=== PATIENT | female | born 1975 | race African-American/Black ===

== ENCOUNTER 2022-11-19 13:59 | Inpatient (IN) | payer OTHER ==
[2022-11-19 14:25] VITALS: BMI 29.2
[2022-11-19] MEDS ORDERED: POLYETHYLENE GLYCOL (HEALTHYLAX) 3350 17 GM PACKET PO PRN (15:06)
[2022-11-19] MEDS ORDERED: IBUPROFEN 400 MG TABLET (FP) PO PRN (15:06)
[2022-11-19] MEDS ORDERED: ONDANSETRON *ODT* 4 MG TABLET SL PRN (15:06)
[2022-11-19] MEDS ORDERED: P-EPHED 60MG/TRIPROLIDI 2.5MG TABLET PO PRN (15:06)
[2022-11-19] MEDS ORDERED: MAGNESIUM HYDROX 2400MG/30ML ORAL SUSPENSION 30 ML CUP PO PRN (15:06)
[2022-11-19] MEDS ORDERED: ACETAMINOPHEN 325 MG TABLET (FP) PO PRN (15:06)
[2022-11-19] MEDS ORDERED: BENZONATATE 200 MG CAPSULE PO PRN (15:06)
[2022-11-19] MEDS ORDERED: LOPERAMIDE HCL 2 MG CAPSULE PO PRN (15:06)
[2022-11-19] MEDS ORDERED: MAG HYDROX/AL HYDROX/SIMETH 30 ML UNIT-DOSE CUP PO PRN (15:06)
[2022-11-19] MEDS ORDERED: guaiFENesin 600 MG TABLET.ER (FP) PO PRN (15:06)
[2022-11-19] MEDS ORDERED: hydrOXYzine PAMOATE 25 MG CAPSULE (FP) PO PRN (15:06)
[2022-11-19] MEDS ORDERED: NICOTINE 10 MG CARTRIDGE (INHALER) IH PRN (15:06)
[2022-11-19] MEDS ORDERED: BISMUTH SUBSALICYLATE 524 MG/30 ML PO PRN (15:06)
[2022-11-19] MEDS ORDERED: DICYCLOMINE HCL 10 MG CAPSULE PO PRN (15:06)
[2022-11-19] MEDS ORDERED: IBUPROFEN 600 MG TABLET (FP) PO PRN (15:06)
[2022-11-19] MEDS ORDERED: BENZOCAINE/MENTHOL (CHLORASEPTIC ) LOZENGE MM PRN (15:06)
[2022-11-19] MEDS ORDERED: chlordiazePOXIDE HCL 25 MG CAPSULE PO PRN (15:09)
[2022-11-19] MEDS: chlordiazePOXIDE HCL 25 MG CAPSULE PO SCH ×2 (16:38→22:31)
[2022-11-19] MEDS: HYDROCHLOROTHIAZIDE 12.5 MG CAPSULE (FP) PO SCH (18:08)
[2022-11-19] MEDS: THIAMINE HCL 100 MG TABLET (FP) PO SCH (22:31)
[2022-11-19] MEDS: MELATONIN 5 MG TABLETS PO SCH (22:31)
[2022-11-19] MEDS: METHOCARBAMOL 500 MG TABLET PO PRN (22:31)
[2022-11-20] MEDS: chlordiazePOXIDE HCL 25 MG CAPSULE PO SCH ×4 (05:31→22:17)
[2022-11-20 10:50] LABS: POTASSIUM 3.5 mmol/L (3.5-5.1)
[2022-11-20 10:53] LABS: CALCIUM 8.4 mg/dL (8.5-10.1)
[2022-11-20 10:54] LABS: ALBUMIN 3.2 g/dl (3.4-5.0); BLOOD UREA NITROGEN 11.2 mg/dL (7-18)
[2022-11-20] MEDS: HYDROCHLOROTHIAZIDE 12.5 MG CAPSULE (FP) PO SCH (10:55)
[2022-11-20] MEDS: PRENATAL VITAMINS W/ FOLIC ACID TABLET (FP) PO SCH (10:55)
[2022-11-20 10:57] LABS: CREATININE 0.8 mg/dL (0.55-1.3)
[2022-11-20 10:58] LABS: TOT PROT 6.7 g/dl (6.4-8.2)
[2022-11-20 11:11] LABS: HEMATOCRIT 32.2 % (32.4-45.2); MCH 28.1 pg (25.7-33.7); MCHC 34.2 g/dl (32.0-36.0); MEAN CELL VOLUME 82.1 fl (80-96); MEAN PLT VOLUME 8.1 fl (7.5-11.1); PLATELET COUNT 162 10^3/uL (134-434); RBC 3.92 M/mm3 (3.60-5.2); RDW 16.5 % (11.6-15.6); WHITE BLOOD COUNT 3.4 K/mm3 (4.0-10.0)
[2022-11-20] MEDS: METHOCARBAMOL 500 MG TABLET PO PRN (20:36)
[2022-11-20] MEDS: THIAMINE HCL 100 MG TABLET (FP) PO SCH (22:17)
[2022-11-20] MEDS: MELATONIN 5 MG TABLETS PO SCH (22:17)
[2022-11-21] MEDS: chlordiazePOXIDE HCL 25 MG CAPSULE PO SCH ×4 (05:14→22:20)
[2022-11-21] MEDS: PRENATAL VITAMINS W/ FOLIC ACID TABLET (FP) PO SCH (10:12)
[2022-11-21] MEDS: HYDROCHLOROTHIAZIDE 12.5 MG CAPSULE (FP) PO SCH (10:12)
[2022-11-21] MEDS: NICOTINE POLACRILEX 2 MG GUM BUC PRN (12:59)
[2022-11-21] MEDS: LISINOPRIL 5 MG TABLET PO SCH (14:23)
[2022-11-21] MEDS: cloNIDine HCL 0.1 MG TABLET PO PRN (17:18)
[2022-11-21] MEDS: MELATONIN 5 MG TABLETS PO SCH (22:20)
[2022-11-21] MEDS: THIAMINE HCL 100 MG TABLET (FP) PO SCH (22:20)
[2022-11-21] MEDS: METHOCARBAMOL 500 MG TABLET PO PRN (22:21)
[2022-11-22] MEDS ORDERED: chlordiazePOXIDE HCL 10 MG CAPSULE PO PRN
[2022-11-22] MEDS: chlordiazePOXIDE HCL 10 MG CAPSULE PO SCH ×4 (05:48→22:12)
[2022-11-22] MEDS: PRENATAL VITAMINS W/ FOLIC ACID TABLET (FP) PO SCH (10:21)
[2022-11-22] MEDS: HYDROCHLOROTHIAZIDE 12.5 MG CAPSULE (FP) PO SCH (10:21)
[2022-11-22] MEDS: LISINOPRIL 5 MG TABLET PO SCH (10:21)
[2022-11-22] MEDS: cloNIDine HCL 0.1 MG TABLET PO PRN ×2 (17:47→22:12)
[2022-11-22] MEDS: NICOTINE POLACRILEX 2 MG GUM BUC PRN (18:17)
[2022-11-22] MEDS: MELATONIN 5 MG TABLETS PO SCH (22:12)
[2022-11-22] MEDS: THIAMINE HCL 100 MG TABLET (FP) PO SCH (22:12)
[2022-11-23] MEDS ORDERED: INSULIN SLIDING SCALE (NOVOLOG) 1 VIAL SQ ONE (04:22)
[2022-11-23] MEDS: chlordiazePOXIDE HCL 10 MG CAPSULE PO SCH ×2 (05:41→17:31)
[2022-11-23] MEDS: HYDROCHLOROTHIAZIDE 12.5 MG CAPSULE (FP) PO SCH (10:19)
[2022-11-23] MEDS: PRENATAL VITAMINS W/ FOLIC ACID TABLET (FP) PO SCH (10:19)
[2022-11-23] MEDS: LISINOPRIL 5 MG TABLET PO SCH (10:19)
[2022-11-23] MEDS: NICOTINE POLACRILEX 2 MG GUM BUC PRN (13:30)
[2022-11-23] MEDS: MELATONIN 5 MG TABLETS PO SCH (22:17)
[2022-11-23] MEDS: THIAMINE HCL 100 MG TABLET (FP) PO SCH (22:17)
[2022-11-23] MEDS: METHOCARBAMOL 500 MG TABLET PO PRN (22:17)
[2022-11-24] MEDS ORDERED: chlordiazePOXIDE HCL 10 MG CAPSULE PO ONE (05:00)
[2022-11-24 09:32] VITALS: BP 130/74; PULSE 72; RESP 16; TEMP 96.8
[2022-11-24] MEDS: PRENATAL VITAMINS W/ FOLIC ACID TABLET (FP) PO SCH (09:33)
[2022-11-24] MEDS: LISINOPRIL 5 MG TABLET PO SCH (09:33)
[2022-11-24] MEDS: HYDROCHLOROTHIAZIDE 12.5 MG CAPSULE (FP) PO SCH (09:33)
== END 2022-11-24 09:48 | disposition home or self-care (01) | DRG 775 ==
LOC: YASAS 13:59 → Y3N 15:21
PROVIDERS: ADMIT Allergy & Immunology; ATTEND Surgery
PROC: HZ2ZZZZ Detoxification Services for Substance Abuse Treatment (ICD-10-PCS; principal; 2022-11-19)
DX: F10.230 Alcohol dependence with withdrawal, uncomplicated (principal); F17.210 Nicotine dependence, cigarettes, uncomplicated; F32.A Depression, unspecified; I10 Essential (primary) hypertension; J45.30 Mild persistent asthma, uncomplicated; E11.9 Type 2 diabetes mellitus without complications
CPT/HCPCS: 36415; 80053; 81025; 82962; 85027; 86780; 87635; 87811

== ENCOUNTER 2023-05-04 16:15 | Inpatient (IN) | payer OTHER ==
[2023-05-04 17:38] VITALS: BMI 28.3
[2023-05-04] MEDS ORDERED: NALOXONE HCL (KLOXXADO) 8 MG SPRAY NS PRN (20:50)
[2023-05-04] MEDS ORDERED: IBUPROFEN 600 MG TABLET (FP) PO PRN (20:50)
[2023-05-04] MEDS ORDERED: hydrOXYzine PAMOATE 25 MG CAPSULE (FP) PO PRN (20:50)
[2023-05-04] MEDS ORDERED: POLYETHYLENE GLYCOL (HEALTHYLAX) 3350 17 GM PACKET PO PRN (20:50)
[2023-05-04] MEDS ORDERED: NICOTINE POLACRILEX 2 MG GUM BUC PRN (20:50)
[2023-05-04] MEDS ORDERED: DICYCLOMINE HCL 10 MG CAPSULE PO PRN (20:50)
[2023-05-04] MEDS ORDERED: IBUPROFEN 400 MG TABLET (FP) PO PRN (20:50)
[2023-05-04] MEDS ORDERED: BENZONATATE 200 MG CAPSULE PO PRN (20:50)
[2023-05-04] MEDS ORDERED: NALOXONE HCL 0.4 MG/ML VIAL IM PRN (20:50)
[2023-05-04] MEDS ORDERED: diazePAM 5 MG TABLET PO PRN (20:50)
[2023-05-04] MEDS ORDERED: BISMUTH SUBSALICYLATE 524 MG/30 ML PO PRN (20:50)
[2023-05-04] MEDS ORDERED: MAGNESIUM HYDROX 2400MG/30ML ORAL SUSPENSION 30 ML CUP PO PRN (20:50)
[2023-05-04] MEDS ORDERED: guaiFENesin 600 MG TABLET.ER (FP) PO PRN (20:50)
[2023-05-04] MEDS ORDERED: ACETAMINOPHEN 325 MG TABLET (FP) PO PRN (20:50)
[2023-05-04] MEDS ORDERED: BENZOCAINE/MENTHOL (CHLORASEPTIC ) LOZENGE MM PRN (20:50)
[2023-05-04] MEDS ORDERED: LOPERAMIDE HCL 2 MG CAPSULE PO PRN (20:50)
[2023-05-04] MEDS ORDERED: MAG HYDROX/AL HYDROX/SIMETH 30 ML UNIT-DOSE CUP PO PRN (20:50)
[2023-05-04] MEDS ORDERED: ONDANSETRON *ODT* 4 MG TABLET SL PRN (20:50)
[2023-05-04] MEDS: METHOCARBAMOL 500 MG TABLET PO PRN (22:16)
[2023-05-04] MEDS: MELATONIN 5 MG TABLETS PO SCH (22:16)
[2023-05-04] MEDS: THIAMINE HCL 100 MG TABLET (FP) PO SCH (22:16)
[2023-05-04] MEDS: diazePAM 5 MG TABLET PO SCH (22:16)
[2023-05-05] MEDS: diazePAM 5 MG TABLET PO SCH ×4 (05:25→22:07)
[2023-05-05] MEDS: PRENATAL VITAMINS W/ FOLIC ACID TABLET (FP) PO SCH (10:12)
[2023-05-05] MEDS: BACITRACIN 0.9 GM PACKET TP SCH (10:12)
[2023-05-05] MEDS: HYDROCHLOROTHIAZIDE 12.5 MG CAPSULE (FP) PO SCH (10:13)
[2023-05-05] MEDS: NICOTINE 14 MG/24 HOURS TOPICAL PATCH TD SCH (10:14)
[2023-05-05] MEDS: NIFEdipine E.R 60 MG TABLET PO SCH (10:14)
[2023-05-05 10:35] LABS: MCH 26.9 pg (25.7-33.7); MCHC 34.3 g/dl (32.0-36.0); MEAN CELL VOLUME 78.4 fl (80-96); MEAN PLT VOLUME 8.1 fl (7.5-11.1); PLATELET COUNT 143 10^3/uL (134-434); RBC 4.08 M/mm3 (3.60-5.2); RDW 14.9 % (11.6-15.6); WHITE BLOOD COUNT 4.7 K/mm3 (4.0-10.0)
[2023-05-05 10:47] LABS: CHLORIDE 101 mmol/L (98-107); SODIUM 135 mmol/L (136-145)
[2023-05-05 10:49] LABS: BLOOD UREA NITROGEN 16.1 mg/dL (7-18); CALCIUM 7.9 mg/dL (8.5-10.1); CO2 32 mmol/L (21-32); GLUCOSE,RANDOM 114 mg/dL (74-106)
[2023-05-05 10:53] LABS: CREATININE 0.8 mg/dL (0.55-1.3); SGOT/AST 105 U/L (15-37); SGPT/ALT 67 U/L (13-61)
[2023-05-05 10:54] LABS: BILIRUBIN,TOTAL 0.8 mg/dL (0.2-1); TOT PROT 6.4 g/dl (6.4-8.2)
[2023-05-05 10:56] LABS: ALK PHOS 60 U/L (45-117)
[2023-05-05 12:53] LABS: ANION GAP 2 mmol/L (4-13); POTASSIUM 2.8 mmol/L (3.5-5.1)
[2023-05-05] MEDS ORDERED: POTASSIUM CHLORIDE ORAL LIQUID 20 MEQ/15 ML PO ONE ×3 (14:03→18:15)
[2023-05-05] MEDS: THIAMINE HCL 100 MG TABLET (FP) PO SCH (22:07)
[2023-05-05] MEDS: POTASSIUM CHLORIDE ORAL LIQUID 20 MEQ/15 ML PO SCH (22:07)
[2023-05-05] MEDS: MELATONIN 5 MG TABLETS PO SCH (22:07)
[2023-05-06] MEDS: diazePAM 5 MG TABLET PO SCH ×3 (05:32→22:06)
[2023-05-06] MEDS: HYDROCHLOROTHIAZIDE 12.5 MG CAPSULE (FP) PO SCH (09:50)
[2023-05-06] MEDS: ESCITALOPRAM OXALATE 10 MG TABLET PO SCH (09:50)
[2023-05-06] MEDS: BACITRACIN 0.9 GM PACKET TP SCH (09:50)
[2023-05-06] MEDS: NICOTINE 14 MG/24 HOURS TOPICAL PATCH TD SCH (09:51)
[2023-05-06] MEDS: POTASSIUM CHLORIDE ORAL LIQUID 20 MEQ/15 ML PO SCH ×2 (09:51→22:06)
[2023-05-06] MEDS: PRENATAL VITAMINS W/ FOLIC ACID TABLET (FP) PO SCH (09:51)
[2023-05-06] MEDS: NIFEdipine E.R 60 MG TABLET PO SCH (10:11)
[2023-05-06 10:50] LABS: POTASSIUM 3.6 mmol/L (3.5-5.1)
[2023-05-06 11:07] LABS: BLOOD UREA NITROGEN 11.1 mg/dL (7-18)
[2023-05-06 11:11] LABS: CREATININE 0.7 mg/dL (0.55-1.3)
[2023-05-06 11:14] LABS: CALCIUM 9.1 mg/dL (8.5-10.1)
[2023-05-06] MEDS: MELATONIN 5 MG TABLETS PO SCH (22:05)
[2023-05-06] MEDS: METHOCARBAMOL 500 MG TABLET PO PRN (22:05)
[2023-05-06] MEDS: THIAMINE HCL 100 MG TABLET (FP) PO SCH (22:05)
[2023-05-07] MEDS: diazePAM 5 MG TABLET PO SCH ×2 (05:22→17:29)
[2023-05-07] MEDS: HYDROCHLOROTHIAZIDE 12.5 MG CAPSULE (FP) PO SCH (09:57)
[2023-05-07] MEDS: BACITRACIN 0.9 GM PACKET TP SCH (09:57)
[2023-05-07] MEDS: ESCITALOPRAM OXALATE 10 MG TABLET PO SCH (09:58)
[2023-05-07] MEDS: NICOTINE 14 MG/24 HOURS TOPICAL PATCH TD SCH (09:59)
[2023-05-07] MEDS: PRENATAL VITAMINS W/ FOLIC ACID TABLET (FP) PO SCH (09:59)
[2023-05-07] MEDS: NIFEdipine E.R 60 MG TABLET PO SCH (09:59)
[2023-05-07 20:04] LABS: BLOOD UREA NITROGEN 12.5 mg/dL (7-18)
[2023-05-07 20:06] LABS: CALCIUM 9.9 mg/dL (8.5-10.1)
[2023-05-07 20:08] LABS: CREATININE 0.7 mg/dL (0.55-1.3)
[2023-05-07] MEDS: THIAMINE HCL 100 MG TABLET (FP) PO SCH (22:10)
[2023-05-07] MEDS: MELATONIN 5 MG TABLETS PO SCH (22:10)
[2023-05-08] MEDS ORDERED: diazePAM 5 MG TABLET PO ONE (06:00)
[2023-05-08] MEDS: ESCITALOPRAM OXALATE 10 MG TABLET PO SCH (09:30)
[2023-05-08] MEDS: HYDROCHLOROTHIAZIDE 12.5 MG CAPSULE (FP) PO SCH (09:30)
[2023-05-08] MEDS: BACITRACIN 0.9 GM PACKET TP SCH (09:30)
[2023-05-08] MEDS: PRENATAL VITAMINS W/ FOLIC ACID TABLET (FP) PO SCH (09:32)
[2023-05-08] MEDS: NICOTINE 14 MG/24 HOURS TOPICAL PATCH TD SCH (09:32)
[2023-05-08] MEDS: NIFEdipine E.R 60 MG TABLET PO SCH (09:33)
[2023-05-08] MEDS: MELATONIN 5 MG TABLETS PO SCH (22:26)
[2023-05-08] MEDS: THIAMINE HCL 100 MG TABLET (FP) PO SCH (22:26)
[2023-05-09 08:59] VITALS: RESP 18
[2023-05-09] MEDS: BACITRACIN 0.9 GM PACKET TP SCH (09:48)
[2023-05-09] MEDS: HYDROCHLOROTHIAZIDE 12.5 MG CAPSULE (FP) PO SCH (09:48)
[2023-05-09] MEDS: ESCITALOPRAM OXALATE 10 MG TABLET PO SCH (09:48)
[2023-05-09] MEDS: NICOTINE 14 MG/24 HOURS TOPICAL PATCH TD SCH (09:49)
[2023-05-09] MEDS: NIFEdipine E.R 60 MG TABLET PO SCH (09:49)
[2023-05-09] MEDS: PRENATAL VITAMINS W/ FOLIC ACID TABLET (FP) PO SCH (09:49)
[2023-05-09 13:00] VITALS: BP 101/61; PULSE 72; TEMP 97.5
== END 2023-05-09 14:45 | disposition other institution (70) | DRG 775 ==
LOC: YASAS 16:15 → Y3N 21:12
PROVIDERS: ADMIT Allergy & Immunology; ATTEND Surgery
PROC: HZ2ZZZZ Detoxification Services for Substance Abuse Treatment (ICD-10-PCS; principal; 2023-05-04)
DX: F10.230 Alcohol dependence with withdrawal, uncomplicated (principal); F17.210 Nicotine dependence, cigarettes, uncomplicated; F19.24 Other psychoactive substance dependence with psychoactive substance-induced mood disorder; F32.A Depression, unspecified; I10 Essential (primary) hypertension; E87.6 Hypokalemia; E11.9 Type 2 diabetes mellitus without complications
CPT/HCPCS: 36415; 80048; 80053; 80307; 81025; 82962; 85027; 86780; 87635

== ENCOUNTER 2023-05-09 14:52 | Inpatient (IN) | payer OTHER ==
[2023-05-09] MEDS ORDERED: MAG HYDROX/AL HYDROX/SIMETH 30 ML UNIT-DOSE CUP PO PRN (15:16)
[2023-05-09] MEDS ORDERED: NALOXONE HCL (KLOXXADO) 8 MG SPRAY NS PRN (15:16)
[2023-05-09] MEDS ORDERED: guaiFENesin 600 MG TABLET.ER (FP) PO PRN (15:16)
[2023-05-09] MEDS ORDERED: NICOTINE POLACRILEX 4 MG GUM BUC PRN (15:16)
[2023-05-09] MEDS ORDERED: BENZONATATE 200 MG CAPSULE PO PRN (15:16)
[2023-05-09] MEDS ORDERED: ACETAMINOPHEN 325 MG TABLET (FP) PO PRN (15:16)
[2023-05-09] MEDS ORDERED: AMMONIUM LACTATE 12% LOTION 225 GM BOTTLE TP PRN (15:16)
[2023-05-09] MEDS ORDERED: BENZOCAINE/MENTHOL (CHLORASEPTIC ) LOZENGE MM PRN (15:16)
[2023-05-09] MEDS ORDERED: MAGNESIUM HYDROX 2400MG/30ML ORAL SUSPENSION 30 ML CUP PO PRN (15:16)
[2023-05-09] MEDS ORDERED: LOPERAMIDE HCL 2 MG CAPSULE PO PRN (15:16)
[2023-05-09] MEDS ORDERED: IBUPROFEN 400 MG TABLET (FP) PO PRN (15:16)
[2023-05-09] MEDS ORDERED: hydrOXYzine PAMOATE 25 MG CAPSULE (FP) PO PRN (15:16)
[2023-05-09] MEDS ORDERED: NALOXONE HCL 0.4 MG/ML VIAL IVPUSH PRN (15:16)
[2023-05-09] MEDS ORDERED: POLYETHYLENE GLYCOL (HEALTHYLAX) 3350 17 GM PACKET PO PRN (15:16)
[2023-05-09] MEDS: MELATONIN 5 MG TABLETS PO SCH (21:57)
[2023-05-09] MEDS: THIAMINE HCL 100 MG TABLET (FP) PO SCH (21:57)
[2023-05-10] MEDS: NIFEdipine E.R 60 MG TABLET PO SCH (09:56)
[2023-05-10] MEDS: CHOLECALCIFEROL (VIT D3) 400 UNIT (10 MCG) TABLET PO SCH (09:56)
[2023-05-10] MEDS: PRENATAL VITAMINS W/ FOLIC ACID TABLET (FP) PO SCH (09:56)
[2023-05-10] MEDS: ESCITALOPRAM OXALATE 10 MG TABLET PO SCH (09:56)
[2023-05-10] MEDS: HYDROCHLOROTHIAZIDE 12.5 MG CAPSULE (FP) PO SCH (09:56)
[2023-05-10 10:44] LABS: INR 1.13 (0.83-1.09); PROTHROMBIN TIME (PATIENT) 13.1 SEC (9.7-13.0)
[2023-05-10 10:48] LABS: POTASSIUM 3.9 mmol/L (3.5-5.1)
[2023-05-10 11:19] LABS: ALBUMIN 3.3 g/dl (3.4-5.0); BLOOD UREA NITROGEN 15.7 mg/dL (7-18); CALCIUM 9.2 mg/dL (8.5-10.1)
[2023-05-10 11:23] LABS: CREATININE 0.8 mg/dL (0.55-1.3)
[2023-05-10 11:24] LABS: BILIRUBIN,TOTAL 0.6 mg/dL (0.2-1); TOT PROT 7.1 g/dl (6.4-8.2)
[2023-05-10] MEDS: INSULIN SLIDING SCALE (NOVOLOG) 1 VIAL SQ SCH (16:59)
[2023-05-10] MEDS: MELATONIN 5 MG TABLETS PO SCH (21:15)
[2023-05-10] MEDS: THIAMINE HCL 100 MG TABLET (FP) PO SCH (21:17)
[2023-05-11] MEDS ORDERED: INSULIN (NOVOLOG) ASPART 100 UNITS/ML 10ML VIAL ONE ×2 (04:11→16:41)
[2023-05-11] MEDS: COLLOIDAL OATMEAL 1 BAR EACH TP PRN (06:34)
[2023-05-11] MEDS: INSULIN SLIDING SCALE (NOVOLOG) 1 VIAL SQ SCH ×2 (06:34→17:55)
[2023-05-11] MEDS: CHOLECALCIFEROL (VIT D3) 400 UNIT (10 MCG) TABLET PO SCH (09:45)
[2023-05-11] MEDS: PRENATAL VITAMINS W/ FOLIC ACID TABLET (FP) PO SCH (09:45)
[2023-05-11] MEDS: ESCITALOPRAM OXALATE 10 MG TABLET PO SCH (09:46)
[2023-05-11] MEDS: HYDROCHLOROTHIAZIDE 12.5 MG CAPSULE (FP) PO SCH (09:46)
[2023-05-11] MEDS: NIFEdipine E.R 60 MG TABLET PO SCH (09:46)
[2023-05-11] MEDS: MELATONIN 5 MG TABLETS PO SCH (21:04)
[2023-05-11] MEDS: THIAMINE HCL 100 MG TABLET (FP) PO SCH (21:04)
[2023-05-12] MEDS: INSULIN SLIDING SCALE (NOVOLOG) 1 VIAL SQ SCH ×2 (08:06→16:46)
[2023-05-12] MEDS: CHOLECALCIFEROL (VIT D3) 400 UNIT (10 MCG) TABLET PO SCH (09:50)
[2023-05-12] MEDS: NIFEdipine E.R 60 MG TABLET PO SCH (09:50)
[2023-05-12] MEDS: ESCITALOPRAM OXALATE 10 MG TABLET PO SCH (09:50)
[2023-05-12] MEDS: HYDROCHLOROTHIAZIDE 12.5 MG CAPSULE (FP) PO SCH (09:50)
[2023-05-12] MEDS: PRENATAL VITAMINS W/ FOLIC ACID TABLET (FP) PO SCH (09:50)
[2023-05-12] MEDS: BACLOFEN 10 MG TABLET (FP) PO PRN ×2 (13:13→21:33)
[2023-05-12] MEDS: IBUPROFEN 600 MG TABLET (FP) PO PRN (13:13)
[2023-05-12] MEDS: metFORMIN HCL 500 MG TABLET (FP) PO SCH (16:42)
[2023-05-12] MEDS: MELATONIN 5 MG TABLETS PO SCH (21:32)
[2023-05-12] MEDS: THIAMINE HCL 100 MG TABLET (FP) PO SCH (21:32)
[2023-05-13] MEDS: INSULIN SLIDING SCALE (NOVOLOG) 1 VIAL SQ SCH ×2 (06:35→16:41)
[2023-05-13] MEDS: metFORMIN HCL 500 MG TABLET (FP) PO SCH ×2 (06:35→16:41)
[2023-05-13] MEDS: ESCITALOPRAM OXALATE 10 MG TABLET PO SCH (09:41)
[2023-05-13] MEDS: HYDROCHLOROTHIAZIDE 12.5 MG CAPSULE (FP) PO SCH (09:41)
[2023-05-13] MEDS: PRENATAL VITAMINS W/ FOLIC ACID TABLET (FP) PO SCH (09:41)
[2023-05-13] MEDS: NIFEdipine E.R 60 MG TABLET PO SCH (09:41)
[2023-05-13] MEDS: CHOLECALCIFEROL (VIT D3) 400 UNIT (10 MCG) TABLET PO SCH (09:41)
[2023-05-13] MEDS: NICOTINE 14 MG/24 HOURS TOPICAL PATCH TD PRN (09:42)
[2023-05-13] MEDS: NALTREXONE HCL 50 MG TABLET PO SCH (10:44)
[2023-05-13] MEDS: MELATONIN 5 MG TABLETS PO SCH (21:12)
[2023-05-13] MEDS: THIAMINE HCL 100 MG TABLET (FP) PO SCH (21:12)
[2023-05-13] MEDS: BACLOFEN 10 MG TABLET (FP) PO PRN (21:14)
[2023-05-14] MEDS: metFORMIN HCL 500 MG TABLET (FP) PO SCH ×2 (06:18→16:29)
[2023-05-14] MEDS: INSULIN SLIDING SCALE (NOVOLOG) 1 VIAL SQ SCH ×2 (06:19→16:29)
[2023-05-14] MEDS: PRENATAL VITAMINS W/ FOLIC ACID TABLET (FP) PO SCH (09:49)
[2023-05-14] MEDS: CHOLECALCIFEROL (VIT D3) 400 UNIT (10 MCG) TABLET PO SCH (09:49)
[2023-05-14] MEDS: NALTREXONE HCL 50 MG TABLET PO SCH (09:49)
[2023-05-14] MEDS: ESCITALOPRAM OXALATE 10 MG TABLET PO SCH (09:49)
[2023-05-14] MEDS: HYDROCHLOROTHIAZIDE 12.5 MG CAPSULE (FP) PO SCH (09:49)
[2023-05-14] MEDS: NIFEdipine E.R 60 MG TABLET PO SCH (09:49)
[2023-05-14] MEDS: MELATONIN 5 MG TABLETS PO SCH (21:25)
[2023-05-14] MEDS: THIAMINE HCL 100 MG TABLET (FP) PO SCH (21:26)
[2023-05-15] MEDS: metFORMIN HCL 500 MG TABLET (FP) PO SCH ×2 (06:37→16:40)
[2023-05-15] MEDS: INSULIN SLIDING SCALE (NOVOLOG) 1 VIAL SQ SCH ×2 (06:38→16:40)
[2023-05-15] MEDS: HYDROCHLOROTHIAZIDE 12.5 MG CAPSULE (FP) PO SCH (10:00)
[2023-05-15] MEDS: NIFEdipine E.R 60 MG TABLET PO SCH (10:00)
[2023-05-15] MEDS: ESCITALOPRAM OXALATE 10 MG TABLET PO SCH (10:00)
[2023-05-15] MEDS: PRENATAL VITAMINS W/ FOLIC ACID TABLET (FP) PO SCH (10:00)
[2023-05-15] MEDS: CHOLECALCIFEROL (VIT D3) 400 UNIT (10 MCG) TABLET PO SCH (10:00)
[2023-05-15] MEDS: NALTREXONE HCL 50 MG TABLET PO SCH (10:00)
[2023-05-15] MEDS: MELATONIN 5 MG TABLETS PO SCH (21:25)
[2023-05-15] MEDS: THIAMINE HCL 100 MG TABLET (FP) PO SCH (21:25)
[2023-05-16] MEDS: metFORMIN HCL 500 MG TABLET (FP) PO SCH ×2 (06:03→16:42)
[2023-05-16] MEDS: INSULIN SLIDING SCALE (NOVOLOG) 1 VIAL SQ SCH ×2 (06:35→16:40)
[2023-05-16] MEDS: ESCITALOPRAM OXALATE 10 MG TABLET PO SCH (10:11)
[2023-05-16] MEDS: PRENATAL VITAMINS W/ FOLIC ACID TABLET (FP) PO SCH (10:11)
[2023-05-16] MEDS: CHOLECALCIFEROL (VIT D3) 400 UNIT (10 MCG) TABLET PO SCH (10:11)
[2023-05-16] MEDS: NALTREXONE HCL 50 MG TABLET PO SCH (10:11)
[2023-05-16] MEDS: NIFEdipine E.R 60 MG TABLET PO SCH (10:11)
[2023-05-16] MEDS: HYDROCHLOROTHIAZIDE 12.5 MG CAPSULE (FP) PO SCH (10:11)
[2023-05-16] MEDS: NICOTINE 14 MG/24 HOURS TOPICAL PATCH TD PRN (10:13)
[2023-05-16] MEDS: MELATONIN 5 MG TABLETS PO SCH (21:33)
[2023-05-16] MEDS: THIAMINE HCL 100 MG TABLET (FP) PO SCH (21:34)
[2023-05-17] MEDS: metFORMIN HCL 500 MG TABLET (FP) PO SCH ×2 (06:41→16:33)
[2023-05-17] MEDS: PRENATAL VITAMINS W/ FOLIC ACID TABLET (FP) PO SCH (09:55)
[2023-05-17] MEDS: CHOLECALCIFEROL (VIT D3) 400 UNIT (10 MCG) TABLET PO SCH (09:55)
[2023-05-17] MEDS: NIFEdipine E.R 60 MG TABLET PO SCH (09:55)
[2023-05-17] MEDS: NALTREXONE HCL 50 MG TABLET PO SCH (09:55)
[2023-05-17] MEDS: HYDROCHLOROTHIAZIDE 12.5 MG CAPSULE (FP) PO SCH (09:55)
[2023-05-17] MEDS: ESCITALOPRAM OXALATE 10 MG TABLET PO SCH (09:55)
[2023-05-17] MEDS: NICOTINE 14 MG/24 HOURS TOPICAL PATCH TD PRN (09:56)
[2023-05-17] MEDS: INSULIN SLIDING SCALE (NOVOLOG) 1 VIAL SQ SCH ×2 (16:35→16:36)
[2023-05-17] MEDS: THIAMINE HCL 100 MG TABLET (FP) PO SCH (22:03)
[2023-05-17] MEDS: MELATONIN 5 MG TABLETS PO SCH (22:03)
[2023-05-18] MEDS: metFORMIN HCL 500 MG TABLET (FP) PO SCH ×2 (06:02→16:30)
[2023-05-18] MEDS: INSULIN SLIDING SCALE (NOVOLOG) 1 VIAL SQ SCH ×2 (06:59→16:30)
[2023-05-18] MEDS: CHOLECALCIFEROL (VIT D3) 400 UNIT (10 MCG) TABLET PO SCH (09:26)
[2023-05-18] MEDS: NALTREXONE HCL 50 MG TABLET PO SCH (09:26)
[2023-05-18] MEDS: ESCITALOPRAM OXALATE 10 MG TABLET PO SCH (09:26)
[2023-05-18] MEDS: PRENATAL VITAMINS W/ FOLIC ACID TABLET (FP) PO SCH (09:27)
[2023-05-18] MEDS: HYDROCHLOROTHIAZIDE 12.5 MG CAPSULE (FP) PO SCH (09:27)
[2023-05-18] MEDS: NIFEdipine E.R 60 MG TABLET PO SCH (09:27)
[2023-05-18] MEDS: NICOTINE 14 MG/24 HOURS TOPICAL PATCH TD PRN (09:27)
[2023-05-18] MEDS: THIAMINE HCL 100 MG TABLET (FP) PO SCH (21:19)
[2023-05-18] MEDS: MELATONIN 5 MG TABLETS PO SCH (21:19)
[2023-05-19] MEDS: metFORMIN HCL 500 MG TABLET (FP) PO SCH ×2 (06:13→16:27)
[2023-05-19] MEDS: INSULIN SLIDING SCALE (NOVOLOG) 1 VIAL SQ SCH ×2 (06:57→16:27)
[2023-05-19] MEDS: CHOLECALCIFEROL (VIT D3) 400 UNIT (10 MCG) TABLET PO SCH (10:08)
[2023-05-19] MEDS: PRENATAL VITAMINS W/ FOLIC ACID TABLET (FP) PO SCH (10:08)
[2023-05-19] MEDS: NALTREXONE HCL 50 MG TABLET PO SCH (10:08)
[2023-05-19] MEDS: ESCITALOPRAM OXALATE 10 MG TABLET PO SCH (10:08)
[2023-05-19] MEDS: NIFEdipine E.R 60 MG TABLET PO SCH (10:08)
[2023-05-19] MEDS: HYDROCHLOROTHIAZIDE 12.5 MG CAPSULE (FP) PO SCH (10:08)
[2023-05-19] MEDS: NICOTINE 14 MG/24 HOURS TOPICAL PATCH TD PRN (14:52)
[2023-05-19] MEDS: THIAMINE HCL 100 MG TABLET (FP) PO SCH (21:45)
[2023-05-19] MEDS: MELATONIN 5 MG TABLETS PO SCH (21:45)
[2023-05-20] MEDS: metFORMIN HCL 500 MG TABLET (FP) PO SCH ×2 (06:18→16:32)
[2023-05-20] MEDS: INSULIN SLIDING SCALE (NOVOLOG) 1 VIAL SQ SCH ×2 (06:19→16:33)
[2023-05-20] MEDS: PRENATAL VITAMINS W/ FOLIC ACID TABLET (FP) PO SCH (09:56)
[2023-05-20] MEDS: HYDROCHLOROTHIAZIDE 12.5 MG CAPSULE (FP) PO SCH (09:56)
[2023-05-20] MEDS: NIFEdipine E.R 60 MG TABLET PO SCH (09:56)
[2023-05-20] MEDS: CHOLECALCIFEROL (VIT D3) 400 UNIT (10 MCG) TABLET PO SCH (09:56)
[2023-05-20] MEDS: ESCITALOPRAM OXALATE 10 MG TABLET PO SCH (09:57)
[2023-05-20] MEDS: NALTREXONE HCL 50 MG TABLET PO SCH (09:57)
[2023-05-20] MEDS: NICOTINE 14 MG/24 HOURS TOPICAL PATCH TD PRN (09:58)
[2023-05-20] MEDS: THIAMINE HCL 100 MG TABLET (FP) PO SCH (21:17)
[2023-05-20] MEDS: MELATONIN 5 MG TABLETS PO SCH (21:17)
[2023-05-21] MEDS: metFORMIN HCL 500 MG TABLET (FP) PO SCH ×2 (06:22→16:34)
[2023-05-21] MEDS: INSULIN SLIDING SCALE (NOVOLOG) 1 VIAL SQ SCH ×2 (06:24→16:35)
[2023-05-21] MEDS: PRENATAL VITAMINS W/ FOLIC ACID TABLET (FP) PO SCH (09:33)
[2023-05-21] MEDS: NIFEdipine E.R 60 MG TABLET PO SCH (09:33)
[2023-05-21] MEDS: HYDROCHLOROTHIAZIDE 12.5 MG CAPSULE (FP) PO SCH (09:33)
[2023-05-21] MEDS: NALTREXONE HCL 50 MG TABLET PO SCH (09:33)
[2023-05-21] MEDS: ESCITALOPRAM OXALATE 10 MG TABLET PO SCH (09:33)
[2023-05-21] MEDS: CHOLECALCIFEROL (VIT D3) 400 UNIT (10 MCG) TABLET PO SCH (09:33)
[2023-05-21] MEDS: NICOTINE 14 MG/24 HOURS TOPICAL PATCH TD PRN (09:35)
[2023-05-21] MEDS: THIAMINE HCL 100 MG TABLET (FP) PO SCH (21:27)
[2023-05-21] MEDS: MELATONIN 5 MG TABLETS PO SCH (21:27)
[2023-05-22] MEDS: INSULIN SLIDING SCALE (NOVOLOG) 1 VIAL SQ SCH ×2 (06:33→16:30)
[2023-05-22] MEDS: metFORMIN HCL 500 MG TABLET (FP) PO SCH ×2 (06:34→17:03)
[2023-05-22] MEDS: PRENATAL VITAMINS W/ FOLIC ACID TABLET (FP) PO SCH (09:31)
[2023-05-22] MEDS: NALTREXONE HCL 50 MG TABLET PO SCH (09:31)
[2023-05-22] MEDS: ESCITALOPRAM OXALATE 10 MG TABLET PO SCH (09:31)
[2023-05-22] MEDS: HYDROCHLOROTHIAZIDE 12.5 MG CAPSULE (FP) PO SCH (09:31)
[2023-05-22] MEDS: CHOLECALCIFEROL (VIT D3) 400 UNIT (10 MCG) TABLET PO SCH (09:31)
[2023-05-22] MEDS: NIFEdipine E.R 60 MG TABLET PO SCH (09:34)
[2023-05-22] MEDS: MELATONIN 5 MG TABLETS PO SCH (21:12)
[2023-05-22] MEDS: THIAMINE HCL 100 MG TABLET (FP) PO SCH (21:12)
[2023-05-23] MEDS: metFORMIN HCL 500 MG TABLET (FP) PO SCH ×2 (06:33→16:36)
[2023-05-23] MEDS: INSULIN SLIDING SCALE (NOVOLOG) 1 VIAL SQ SCH ×2 (06:34→16:36)
[2023-05-23] MEDS: PRENATAL VITAMINS W/ FOLIC ACID TABLET (FP) PO SCH (09:45)
[2023-05-23] MEDS: NICOTINE 14 MG/24 HOURS TOPICAL PATCH TD PRN (09:46)
[2023-05-23] MEDS: NALTREXONE HCL 50 MG TABLET PO SCH (09:46)
[2023-05-23] MEDS: CHOLECALCIFEROL (VIT D3) 400 UNIT (10 MCG) TABLET PO SCH (09:46)
[2023-05-23] MEDS: NIFEdipine E.R 60 MG TABLET PO SCH (09:46)
[2023-05-23] MEDS: ESCITALOPRAM OXALATE 10 MG TABLET PO SCH (09:46)
[2023-05-23] MEDS: HYDROCHLOROTHIAZIDE 12.5 MG CAPSULE (FP) PO SCH (09:46)
[2023-05-23] MEDS: THIAMINE HCL 100 MG TABLET (FP) PO SCH (21:42)
[2023-05-23] MEDS: MELATONIN 5 MG TABLETS PO SCH (21:42)
[2023-05-24] MEDS: metFORMIN HCL 500 MG TABLET (FP) PO SCH ×2 (06:38→16:37)
[2023-05-24] MEDS: INSULIN SLIDING SCALE (NOVOLOG) 1 VIAL SQ SCH ×2 (06:38→16:36)
[2023-05-24] MEDS: ESCITALOPRAM OXALATE 10 MG TABLET PO SCH (10:04)
[2023-05-24] MEDS: HYDROCHLOROTHIAZIDE 12.5 MG CAPSULE (FP) PO SCH (10:04)
[2023-05-24] MEDS: NIFEdipine E.R 60 MG TABLET PO SCH (10:04)
[2023-05-24] MEDS: PRENATAL VITAMINS W/ FOLIC ACID TABLET (FP) PO SCH (10:04)
[2023-05-24] MEDS: NALTREXONE HCL 50 MG TABLET PO SCH (10:04)
[2023-05-24] MEDS: CHOLECALCIFEROL (VIT D3) 400 UNIT (10 MCG) TABLET PO SCH (10:04)
[2023-05-24] MEDS: NICOTINE 14 MG/24 HOURS TOPICAL PATCH TD PRN (10:05)
[2023-05-24] MEDS: COLLOIDAL OATMEAL 1 BAR EACH TP PRN (19:40)
[2023-05-24] MEDS: THIAMINE HCL 100 MG TABLET (FP) PO SCH (21:27)
[2023-05-24] MEDS: MELATONIN 5 MG TABLETS PO SCH (21:27)
[2023-05-25] MEDS: metFORMIN HCL 500 MG TABLET (FP) PO SCH ×2 (06:18→16:33)
[2023-05-25] MEDS: INSULIN SLIDING SCALE (NOVOLOG) 1 VIAL SQ SCH ×3 (06:48→16:54)
[2023-05-25] MEDS: PRENATAL VITAMINS W/ FOLIC ACID TABLET (FP) PO SCH (09:44)
[2023-05-25] MEDS: CHOLECALCIFEROL (VIT D3) 400 UNIT (10 MCG) TABLET PO SCH (09:44)
[2023-05-25] MEDS: NALTREXONE HCL 50 MG TABLET PO SCH (09:44)
[2023-05-25] MEDS: ESCITALOPRAM OXALATE 10 MG TABLET PO SCH (09:44)
[2023-05-25] MEDS: HYDROCHLOROTHIAZIDE 12.5 MG CAPSULE (FP) PO SCH (09:44)
[2023-05-25] MEDS: NIFEdipine E.R 60 MG TABLET PO SCH (09:45)
[2023-05-25] MEDS: NICOTINE 14 MG/24 HOURS TOPICAL PATCH TD PRN (09:46)
[2023-05-25] MEDS ORDERED: INSULIN (NOVOLOG) ASPART 100 UNITS/ML 10ML VIAL ONE (16:54)
[2023-05-25] MEDS: MELATONIN 5 MG TABLETS PO SCH (21:19)
[2023-05-25] MEDS: THIAMINE HCL 100 MG TABLET (FP) PO SCH (21:19)
[2023-05-26] MEDS: INSULIN SLIDING SCALE (NOVOLOG) 1 VIAL SQ SCH (06:34)
[2023-05-26] MEDS: metFORMIN HCL 500 MG TABLET (FP) PO SCH ×2 (06:34→16:36)
[2023-05-26] MEDS: PRENATAL VITAMINS W/ FOLIC ACID TABLET (FP) PO SCH (09:54)
[2023-05-26] MEDS: HYDROCHLOROTHIAZIDE 12.5 MG CAPSULE (FP) PO SCH (09:55)
[2023-05-26] MEDS: CHOLECALCIFEROL (VIT D3) 400 UNIT (10 MCG) TABLET PO SCH (09:55)
[2023-05-26] MEDS: NIFEdipine E.R 60 MG TABLET PO SCH (09:55)
[2023-05-26] MEDS: NALTREXONE HCL 50 MG TABLET PO SCH (09:55)
[2023-05-26] MEDS: ESCITALOPRAM OXALATE 10 MG TABLET PO SCH (09:55)
[2023-05-26] MEDS: NICOTINE 14 MG/24 HOURS TOPICAL PATCH TD PRN (09:56)
[2023-05-26] MEDS: MELATONIN 5 MG TABLETS PO SCH (21:13)
[2023-05-26] MEDS: THIAMINE HCL 100 MG TABLET (FP) PO SCH (21:14)
[2023-05-27] MEDS: metFORMIN HCL 500 MG TABLET (FP) PO SCH ×2 (06:37→16:24)
[2023-05-27] MEDS: CHOLECALCIFEROL (VIT D3) 400 UNIT (10 MCG) TABLET PO SCH (09:40)
[2023-05-27] MEDS: HYDROCHLOROTHIAZIDE 12.5 MG CAPSULE (FP) PO SCH (09:40)
[2023-05-27] MEDS: ESCITALOPRAM OXALATE 10 MG TABLET PO SCH (09:40)
[2023-05-27] MEDS: NIFEdipine E.R 60 MG TABLET PO SCH (09:40)
[2023-05-27] MEDS: NALTREXONE HCL 50 MG TABLET PO SCH (09:40)
[2023-05-27] MEDS: PRENATAL VITAMINS W/ FOLIC ACID TABLET (FP) PO SCH (09:40)
[2023-05-27] MEDS: NICOTINE 14 MG/24 HOURS TOPICAL PATCH TD PRN (09:42)
[2023-05-27] MEDS: THIAMINE HCL 100 MG TABLET (FP) PO SCH (21:25)
[2023-05-27] MEDS: MELATONIN 5 MG TABLETS PO SCH (21:25)
[2023-05-28] MEDS: metFORMIN HCL 500 MG TABLET (FP) PO SCH ×2 (06:19→16:25)
[2023-05-28] MEDS: NIFEdipine E.R 60 MG TABLET PO SCH (10:35)
[2023-05-28] MEDS: HYDROCHLOROTHIAZIDE 12.5 MG CAPSULE (FP) PO SCH (10:35)
[2023-05-28] MEDS: ESCITALOPRAM OXALATE 10 MG TABLET PO SCH (10:35)
[2023-05-28] MEDS: CHOLECALCIFEROL (VIT D3) 400 UNIT (10 MCG) TABLET PO SCH (10:36)
[2023-05-28] MEDS: NALTREXONE HCL 50 MG TABLET PO SCH (10:36)
[2023-05-28] MEDS: PRENATAL VITAMINS W/ FOLIC ACID TABLET (FP) PO SCH (10:36)
[2023-05-28] MEDS: THIAMINE HCL 100 MG TABLET (FP) PO SCH (21:09)
[2023-05-28] MEDS: MELATONIN 5 MG TABLETS PO SCH (21:09)
[2023-05-29] MEDS: metFORMIN HCL 500 MG TABLET (FP) PO SCH ×2 (06:24→16:25)
[2023-05-29] MEDS: CHOLECALCIFEROL (VIT D3) 400 UNIT (10 MCG) TABLET PO SCH (10:07)
[2023-05-29] MEDS: NIFEdipine E.R 60 MG TABLET PO SCH (10:07)
[2023-05-29] MEDS: HYDROCHLOROTHIAZIDE 12.5 MG CAPSULE (FP) PO SCH (10:07)
[2023-05-29] MEDS: PRENATAL VITAMINS W/ FOLIC ACID TABLET (FP) PO SCH (10:07)
[2023-05-29] MEDS: NALTREXONE HCL 50 MG TABLET PO SCH (10:08)
[2023-05-29] MEDS: ESCITALOPRAM OXALATE 10 MG TABLET PO SCH (10:08)
[2023-05-29] MEDS: NICOTINE 14 MG/24 HOURS TOPICAL PATCH TD PRN (10:09)
[2023-05-29] MEDS: MELATONIN 5 MG TABLETS PO SCH (21:39)
[2023-05-29] MEDS: THIAMINE HCL 100 MG TABLET (FP) PO SCH (21:39)
[2023-05-30] MEDS: metFORMIN HCL 500 MG TABLET (FP) PO SCH ×2 (06:43→16:47)
[2023-05-30] MEDS: PRENATAL VITAMINS W/ FOLIC ACID TABLET (FP) PO SCH (10:00)
[2023-05-30] MEDS: CHOLECALCIFEROL (VIT D3) 400 UNIT (10 MCG) TABLET PO SCH (10:01)
[2023-05-30] MEDS: NIFEdipine E.R 60 MG TABLET PO SCH (10:01)
[2023-05-30] MEDS: ESCITALOPRAM OXALATE 10 MG TABLET PO SCH (10:01)
[2023-05-30] MEDS: HYDROCHLOROTHIAZIDE 12.5 MG CAPSULE (FP) PO SCH (10:01)
[2023-05-30] MEDS: NALTREXONE HCL 50 MG TABLET PO SCH (10:02)
[2023-05-30] MEDS: NICOTINE 14 MG/24 HOURS TOPICAL PATCH TD PRN (10:02)
[2023-05-30] MEDS: THIAMINE HCL 100 MG TABLET (FP) PO SCH (21:35)
[2023-05-30] MEDS: MELATONIN 5 MG TABLETS PO SCH (21:35)
[2023-05-31] MEDS: metFORMIN HCL 500 MG TABLET (FP) PO SCH ×2 (06:16→17:38)
[2023-05-31] MEDS: PRENATAL VITAMINS W/ FOLIC ACID TABLET (FP) PO SCH (09:49)
[2023-05-31] MEDS: NICOTINE 14 MG/24 HOURS TOPICAL PATCH TD PRN (09:50)
[2023-05-31] MEDS: ESCITALOPRAM OXALATE 10 MG TABLET PO SCH (09:50)
[2023-05-31] MEDS: NIFEdipine E.R 60 MG TABLET PO SCH (09:50)
[2023-05-31] MEDS: CHOLECALCIFEROL (VIT D3) 400 UNIT (10 MCG) TABLET PO SCH (09:50)
[2023-05-31] MEDS: NALTREXONE HCL 50 MG TABLET PO SCH (09:50)
[2023-05-31] MEDS: HYDROCHLOROTHIAZIDE 12.5 MG CAPSULE (FP) PO SCH (09:50)
[2023-05-31] MEDS: MELATONIN 5 MG TABLETS PO SCH (21:52)
[2023-05-31] MEDS: THIAMINE HCL 100 MG TABLET (FP) PO SCH (21:52)
[2023-06-01] MEDS: metFORMIN HCL 500 MG TABLET (FP) PO SCH ×2 (06:01→17:03)
[2023-06-01] MEDS: IBUPROFEN 600 MG TABLET (FP) PO PRN ×2 (06:27→19:31)
[2023-06-01] MEDS: PRENATAL VITAMINS W/ FOLIC ACID TABLET (FP) PO SCH (09:44)
[2023-06-01] MEDS: NIFEdipine E.R 60 MG TABLET PO SCH (09:44)
[2023-06-01] MEDS: CHOLECALCIFEROL (VIT D3) 400 UNIT (10 MCG) TABLET PO SCH (09:44)
[2023-06-01] MEDS: HYDROCHLOROTHIAZIDE 12.5 MG CAPSULE (FP) PO SCH (09:44)
[2023-06-01] MEDS: ESCITALOPRAM OXALATE 10 MG TABLET PO SCH (09:44)
[2023-06-01] MEDS: NALTREXONE HCL 50 MG TABLET PO SCH (09:44)
[2023-06-01] MEDS: NICOTINE 14 MG/24 HOURS TOPICAL PATCH TD PRN (09:46)
[2023-06-01] MEDS: MELATONIN 5 MG TABLETS PO SCH (21:37)
[2023-06-01] MEDS: THIAMINE HCL 100 MG TABLET (FP) PO SCH (21:37)
[2023-06-02] MEDS: metFORMIN HCL 500 MG TABLET (FP) PO SCH (06:05)
[2023-06-02 07:08] VITALS: TEMP 97
[2023-06-02 09:31] VITALS: BP 124/63; PULSE 86; RESP 19
[2023-06-02] MEDS: NIFEdipine E.R 60 MG TABLET PO SCH (09:45)
[2023-06-02] MEDS: ESCITALOPRAM OXALATE 10 MG TABLET PO SCH (09:45)
[2023-06-02] MEDS: CHOLECALCIFEROL (VIT D3) 400 UNIT (10 MCG) TABLET PO SCH (09:46)
[2023-06-02] MEDS: HYDROCHLOROTHIAZIDE 12.5 MG CAPSULE (FP) PO SCH (09:46)
[2023-06-02] MEDS: PRENATAL VITAMINS W/ FOLIC ACID TABLET (FP) PO SCH (09:47)
[2023-06-02] MEDS: NALTREXONE HCL 50 MG TABLET PO SCH (09:47)
== END 2023-06-02 10:15 | disposition home or self-care (01) | DRG 772 ==
LOC: YASAS 14:52 → Y5N 14:54
PROVIDERS: ADMIT Allergy & Immunology; ATTEND Psychiatry & Neurology Pain Medicine
PROC: HZ42ZZZ Group Counseling for Substance Abuse Treatment, Cognitive-Behavioral (ICD-10-PCS; principal; 2023-05-09)
DX: F10.20 Alcohol dependence, uncomplicated (principal); F10.24 Alcohol dependence with alcohol-induced mood disorder; F17.210 Nicotine dependence, cigarettes, uncomplicated; F19.24 Other psychoactive substance dependence with psychoactive substance-induced mood disorder; E72.20 Disorder of urea cycle metabolism, unspecified; D68.9 Coagulation defect, unspecified; I10 Essential (primary) hypertension; J45.30 Mild persistent asthma, uncomplicated; E11.9 Type 2 diabetes mellitus without complications; Z79.84 Long term (current) use of oral hypoglycemic drugs
CPT/HCPCS: 36415; 80053; 82140; 82962; 83036; 85610; 86803; 87635; J0475